=== PATIENT | female | born 1995 | race Caucasian/White ===

== ENCOUNTER 2016-11-12 06:12 | Emergency (ER) | payer SELFPAY ==
[2016-11-12] MEDS ORDERED: IOPAMIDOL 300 (61%) 100 ML VIAL IV ONE (06:13)
[2016-11-12] MEDS ORDERED: KETOROLAC TROMETHAMINE 30 MG/ML 1 ML VIAL ONE (06:48)
[2016-11-12] MEDS ORDERED: ONDANSETRON 4 MG/2ML 2 ML VIAL ONE (06:48)
[2016-11-12 07:00] LABS: BASO % 0.6 % (0.2-1.0); EOS # 0.3 (0.0-0.5); EOS % 4.6 % (0.9-2.9); HEMATOCRIT 41.4 % (37.0-47.0); HEMOGLOBIN 13.9 gm/l (12.0-16.0); IMM NEUT% 0.2 % (0-1); LYMPH # 2.5 (1.0-4.8); LYMPH % 38.8 % (15-45); MEAN CELL VOLUME 89.4 fl (81.0-99.0); MEAN CORPUSCULAR HGB CONC 33.6 g/dl (33.0-37.0); MONO # 0.5 (0.0-0.8); MONO % 7.8 % (4-12); PLATELET COUNT 264 K/mm3 (130-400); SPECIFIC GRAVITY 1.025 (1.001-1.030); URINE BILIRUBIN NEGATIVE (NEGATIVE); URINE BLOOD NEGATIVE (NEGATIVE); URINE GLUCOSE (UA) NEGATIVE (NEGATIVE); URINE LEUKOCYTE ESTERASE TRACE (NEGATIVE); URINE NITRITE NEGATIVE (NEGATIVE); URINE PROTEIN TRACE (NEGATIVE); URINE UROBILINOGEN 1 mg/dL (0-1 mg/dl)
[2016-11-12 07:06] LABS: URINE APPEARANCE CLEAR; URINE COLOR YELLOW
[2016-11-12 07:21] LABS: ALB/GLOB RATIO 1.1 (>1.0); CALCIUM 8.7 mg/dL (8.6-10.3); URINE BACTERIA 1+; URINE EPITHELIAL CELLS MANY /hpf; URINE MUCUS 2+; URINE RBC 0-1 /hpf; URINE WBC 0-1 /hpf
--- NOTE | 2016-11-12 08:02 | CT ---
Exam: CT abdomen and pelvis with contrast COMPARISON: None INDICATION: Right lower quadrant pain. TECHNIQUE: CT examination of the abdomen and pelvis was obtained following the administration of 100 of Isovue-300 intravenous contrast. FINDINGS: Examination of the pelvis is slightly limited due to motion artifact. High density material and surgical clips along the cecum is noted, presumably related to prior appendectomy. Appendiceal stump is not identified. A moderate amount of stool is present throughout the colon. There is no bowel obstruction, free air or free intraperitoneal fluid. There is no pelvic lymphadenopathy. Uterus and ovaries within normal limits. Urinary bladder unremarkable. The liver, spleen, pancreas, kidneys, adrenal glands and gallbladder are unremarkable. Lung bases are clear. No worrisome osseous abnormality is identified. IMPRESSION: No acute findings identified to explain right lower quadrant pain. Post appendectomy. Attempt to call the ED at 0758 hours 11/12/2016 was unsuccessful. The report was uploaded to the EMR at that time.
--- NOTE | 2016-11-12 10:38 | US ---
Exam: Limited pelvic ultrasound COMPARISON: CT same day INDICATION: Right lower quadrant pain for one week 4 days. Rule out ovarian torsion. Findings: Limited transabdominal pelvic ultrasound was obtained. Right ovary measures 3.6 x 2.2 x 2.4 cm. There is no cystic or solid ovarian mass. Blood flow is present within the right ovary. There is no significant free fluid in the pelvis. IMPRESSION: Normal right ovary without evidence of torsion. Report was uploaded to the EMR at 1034 hours 11/12/2016.
[2016-11-12] MEDS ORDERED: CEFTRIAXONE SODIUM 250 MG VIAL ONE (11:01)
[2016-11-12] MEDS ORDERED: AZITHROMYCIN 250 MG TABLET ONE (11:01)
[2016-11-13 14:35] LABS: CHLAMYDIA BD Negative (Negative); N.GONORRHOEAE BD Negative (Negative); SOURCE Urine (())
== END 2016-11-12 11:19 | disposition home or self-care (01) ==
LOC: ED 06:12
DX: R10.9 Unspecified abdominal pain (principal); J45.909 Unspecified asthma, uncomplicated; F17.210 Nicotine dependence, cigarettes, uncomplicated
CPT/HCPCS: 87491; 87591; 84703; 85025; 80053; 81001; 74177; 76857; 96375; 99284 ×2; 96372; 96374; J0696; J1885; J2405; A9270; Q9967